=== PATIENT | female | born 1955 | race Two or more races ===

== ENCOUNTER → 2017-05-05 | Outpatient (CLI) | payer BC ==
--- NOTE | 2017-05-06 09:49 | RADRPT ---
PROCEDURE: Left hip series CLINICAL INDICATION: Pain TECHNIQUE: AP and frog lateral views of the left hip were performed. COMPARISON: None. FINDINGS: There is a left hip prosthesis in place without evidence of dislocation or loosening. There are no acute fractures. The bony mineralization is normal without focal bony blastic or lytic lesions. So ft tissues are unremarkable. IMPRESSION: 1. Left hip prosthesis in place without evidence of acute fracture dislocation or loosening. RPTAT:AAJJ Physician Philly Date Time Electronically viewed and signed by Physician Philly on 05/05/2017 16:07 /
--- NOTE | 2017-05-06 10:21 | HKNOTE ---
DATE OF SERVICE: 05/05/2017 Dr. Bipin Izquierdo [address] [facility], [address] [place] [address] Dear Bipin: Thank you for referring Camilla Merritt. It is my understanding from her that you referred to me to say if physical therapy might harm her hip. I understand she is possibly going to require spine surgery but you want her to have physical therapy first and is concerned about the impact of the physical therapy on her left total hip replacement. The hip replacement was performed in 1994. She is very pleased with the results of the surgery. She is currently experiencing no symptoms relevant to the left hip replacement. Patient took a fall in December 2016. She currently has no symptoms that one might connect with a fractured socket. The left hip is with full range of motion without pain. Straight leg raising is negative bilaterally at 80 degrees. The x-rays of her left hip show that the acetabular liner has almost worn through completely. Otherwise the components appear to be well attached to the bone. She will need to have a revision of the socket liner at some time in the very near future. I have advised her that it is not an emergency and that it certainly could wait another 6 months, although it would be preferable to exchange of the liner sooner. I have given her a note for the physical therapist with instructions that they may proceed with therapy but no passive exercises should be applied to her left leg. Thank you for your confidence and referring her to my care. With warmest regards, Dictated By: Luis Lance MD /weston/beatrice /Document#: [id number]
--- NOTE | 2017-05-06 10:21 | HKNOTE ---
DATE OF SERVICE: 05/05/2017 REFERRING PHYSICIAN: Dr. Bipin Izquierdo [address] [facility] [place] [address] MAIN COMPLAINT: Pain in the left hip. HISTORY OF MAIN COMPLAINT: The patient is a 61-year-old female, who complains of pain in her left hip. The patient is under the care of Dr. Izquierdo. She has had jykqk-qb-xsocisy low back pain with radiation down her left leg. Dr. Izquierdo obtained an MRI scan and said she need surgery to her back, but he first wants to try physical therapy. However, he is concerned that the physical therapist may do her more harm than good by having physical therapy in relation to her left hip replacement. He wants to know if physical therapy is "okay." PRESENT COMPLAINTS: Patient's symptoms all appear to be related to her lower back. She does not have any groin pain on either side. She uses a cane much of the time. The patient did not provide us with very much more of a history than that. PHYSICAL EXAMINATION: GENERAL: Patient is a fragile-looking 61-year-old female. VITAL SIGNS: Height 5 foot 3 inches. Weight 143 pounds. Blood pressure 150/75, temperature 98.5. The patient walks with a cane. HIPS: Examination of the left hip, a full range of motion without pain. IMAGING: Plain x-rays of the pelvis and left hip obtained today show that she has a ogxcv-gt-vktkxey hip implant. The plastic is worn superiorly and is almost worn through. Plain x-rays of the pelvis and left hip obtained today show that she has had a total hip replacement. The femoral component has been cemented. The acetabular component is cement free. The plastic liner superiorly inside the socket appears to have fractured. Difficult to determine the exact pattern of the fracture. The femoral head sits way near the superior aspect of the acetabulum. It is also completely eccentric. MANAGEMENT: The patient is advised that she will need to have the socket liner replaced fairly soon. The procedure was discussed with her in a fair amount of detail including such aspects as hospital stay and the length of the operation, etc. The patient is advised that it certainly would not be a problem for her to have physical therapy as long as they do not have her left leg and socket aggressively. The patient was given a prescription for the physical therapy unit to explain the limitations. The report indicates "okay to give physical therapy" as ordered by Dr. Izquierdo with no passive work on the left leg. She will be seen again as necessary. Dictated By: Luis Lance MD /weston/beatrice /Document#: [id number]
== END | disposition home or self-care (01) ==
LOC: HKI 15:40
DX: M25.552 Pain in left hip (principal); M54.5 Low back pain; Z96.642 Presence of left artificial hip joint
CPT/HCPCS: 73502; G0463

== ENCOUNTER → 2018-10-07 | Outpatient (CLI) | payer BC ==
--- NOTE | 2018-10-07 16:54 | CONS ---
Date/Time of Note Date/Time of Note DATE: 10/07/18 TIME: 16:46 Assessment/Plan Assessment/Plan Hospital Course This is a 8-year-old female who is qtckw-nuse-xrlwlzds 1 week status post right shoulder dislocation and greater tuberosity fracture. Today x-rays demonstrate that her shoulder is reduced and there is a minimally displaced greater tuberosity fracture. This is amenable to nonoperative treatment. She is to continue the sling and swath. She is to perform no range of motion of the shoulder. She is to perform daily range of motion of the elbow, wrist, forearm, and hand. She is to follow-up in 2 weeks with 3 views of the right shoulder. X-rays look good she will begin pendulums. In addition she is in physical therapy for her degenerative disc disease. At this time I recommend that She hold his physical therapy. Consultation Date/Type/Reason Admit Date/Time Date of Consultation: Oct 07, 2018 Reason for Consultation Right shoulder dislocation and fracture Hx of Present Illness This is a 62-year-old ljepg-ybze-ggazczwr female who presents to clinic for the first time 7 days status post right shoulder injury. She tripped and stopped her fall by planting her right hand firmly against a wall. She sustained a right shoulder fracture dislocation. She was seen in the [place] emergency department. At that time the shoulder was reduced. She was put in a sling and swath and told to follow-up. Patient denies any numbness or tingling in the arm. She does have pain in the right shoulder although it is improved. Pain is 4/10 and is described as sharp and stabbing. She has no prior injury to the shoulder. Lying down makes his symptoms worse. Ice and immobilization make the symptoms better. Patient denies fever, chills, shortness of breath, chest pain, nausea/vomiting, constipation, diarrhea, numbness, and tingling. Past Medical History Current bladder infections Past Surgical History Left total hip arthroplasty Family History Significant Family History: no pertinent family hx Social History Alcohol Use: none Smoking Status: Never smoker Drug Use: none Exam/Review of Systems Vital Signs Vitals Weight: 140 pounds Height: 5 foot 3 inches Temperature: 90.4 Heart Rate: 65 Blood Pressure: 123/60 Respiratory Rate: 12 Exam General: Awake, alert, in no acute distress, pleasant and cooperative Heart: regular rhythm Lungs: breathing comfortably, no tachypnea or dyspnea MUSCULOSKELETAL: Right upper extremity Large ecchymosis over the anterior shoulder and anterior humerus. Tenderness to palpation over the proximal humerus. Skin is intact. Sensation intact to light touch in a median, ulnar, radial, and axillary distribution. Motor is intact in a median, ulnar, radial, anterior interosseous, and posterior interosseous nerve distribution. Radial and ulnar artery are +2. Wrist extension and flexion are intact. Compartments are soft. Imaging Imaging The patient received a standard set of films of the affected shoulder including an AP, Grashey, Scapular Y and velpeau views. Films personally reviewed by myself: The glenohumeral joint is reduced. There is a minimally displaced greater tuberosity fracture. No osteoarthritis of the GHJ. Mild osteoarthritis of the AC joint. The humeral head is not high riding. There is no acetabularization of the acromion or femoralization of the humerus. LATIA SHARPE MD Oct 07, 2018 16:54
--- NOTE | 2018-10-10 08:25 | RADRPT ---
PROCEDURE: XR right shoulder CLINICAL INDICATION: shoulder pain. TECHNIQUE: 4 views of the right shoulder were obtained. COMPARISON: None. FINDINGS: There is a mildly displaced fracture of the right humerus involving the greater tuberosity. The remai darlene osseous structures are intact and well aligned. The alignment of the glenohumeral and right acro mioclavicular joints are maintained. The bone mineralization is normal. There are mild degenerative c hanges of the right acromioclavicular joint. IMPRESSION: 1. Mildly displaced fracture of the right humerus involving the greater tuberosity. The findings were discussed with Dr. Singh at 08:20 a.m. on 10/10/[address] Erickson. RPTAT: AAEE Physician Tra Date Time Electronically viewed and signed by Estephania Erickson Physician on 10/10/2018 08:24 RF/
== END | disposition home or self-care (01) ==
LOC: HKI 14:01
PROVIDERS: ATTEND Orthopaedic Surgery Adult Reconstructive Orthopaedic Surgery
DX: S43.004D Unspecified dislocation of right shoulder joint, subsequent encounter (principal); X58.XXXD Exposure to other specified factors, subsequent encounter; M19.011 Primary osteoarthritis, right shoulder
CPT/HCPCS: 73030; G0463

== ENCOUNTER → 2018-11-18 | Outpatient (CLI) | payer BC ==
--- NOTE | 2018-11-18 14:19 | CONS ---
Consult Date/Type/Reason Admit Date/Time Initial Consult Date Date/Time of Note DATE: 11/18/18 TIME: 14:14 Subjective This is a 8-year-old female following up 7 weeks status post right shoulder fracture dislocation. She sustained a greater tuberosity fracture which reduced in near anatomic position once her shoulder was reduced. She was last seen 1 month ago. She was supposed to start physical therapy for up pendulums and gentle passive range of motion. However she is only been to therapy 3 times. She complains of moderate pain along the lateral aspect of her shoulder down her lateral aspect of her arm. She feels very stiff. Denies numbness and tingling. She has remained nonweightbearing as instructed. Objective Exam General: Awake, alert, in no acute distress, pleasant and cooperative Heart: regular rhythm Lungs: breathing comfortably, no tachypnea or dyspnea MUSCULOSKELETAL: Right upper extremity Tenderness to palpation over the lateral proximal humerus. Range of motion of the glenohumeral joint is limited secondary to stiffness. Forward elevation and abduction to about 45 degrees. Sensation intact to light touch in a median, ulnar, radial, and axillary distribution. Motor is intact in a median, ulnar, radial, anterior interosseous, and posterior interosseous nerve distribution. Radial and ulnar artery are +2. Wrist extension and flexion are intact. Compartments are soft. Results/Medications Imaging 3 views of the right shoulder were obtained in clinic today and personally reviewed. Previously noted greater tuberosity fracture is appreciated. There has been interval healing. No displacement. Greater tuberosity in near anatomic position. No other abnormality. Assessment/Plan Hospital Course (Demo Recall) 8-year-old female 7 weeks status post right shoulder fracture dislocation with fracture of the greater tuberosity. She is being treated nonoperatively as the fracture is near anatomically reduced. She is doing well except that she is very stiff. She had unfortunately late start to physical therapy. This time want her to continue with physical therapy for full passive range of motion as tolerated and active assisted range of motion. Otherwise she is to remain nonweightbearing. I do not want her to try to perform active range of motion overhead. Follow-up 3 weeks with 3 views of the right shoulder. LATIA SHARPE MD Nov 18, 2018 14:19
--- NOTE | 2018-11-19 09:12 | RADRPT ---
PROCEDURE: XR right shoulder. CLINICAL INDICATION: Pain TECHNIQUE: AP external rotation, internal rotation and transscapular views of the right shoulder w ere performed. COMPARISON: SHOULDER 10/28/2018; SHOULDER 10/07/2018 FINDINGS: There is normal osseous mineralization and alignment. There is interval healing of the greater tuberosity fracture. There are normal joints without evidence of arthritis or dislocation. The soft tissues are unremarkable. IMPRESSION: Healing greater tuberosity fracture. [facility] Physician Ryan Date Time Electronically viewed and signed by Physician Ryan on 11/19/2018 09:11 /
== END | disposition home or self-care (01) ==
LOC: HKI 13:21
PROVIDERS: ATTEND Orthopaedic Surgery Adult Reconstructive Orthopaedic Surgery
DX: Z09 Encounter for follow-up examination after completed treatment for conditions other than malignant neoplasm (principal); S42.251D Displaced fracture of greater tuberosity of right humerus, subsequent encounter for fracture with routine healing; X58.XXXD Exposure to other specified factors, subsequent encounter
CPT/HCPCS: 73030; G0463

== ENCOUNTER → 2018-12-09 | Outpatient (CLI) | payer BC ==
--- NOTE | 2018-12-09 14:45 | CONS ---
Consult Date/Type/Reason Admit Date/Time Initial Consult Date Date/Time of Note DATE: 12/09/18 TIME: 14:36 Subjective 63-year-old female follows up 10 weeks status post right shoulder dislocation with fracture of the greater tuberosity. She has been treated nonoperatively as the greater tuberosity was minimally displaced. Unfortunately she had a late start physical therapy and she only started several weeks ago. Her main complaint is stiffness and inability to fully use her arm. She does not have any pain at rest. Denies any numbness and tingling. She has felt she has had some progress with range of motion since starting physical therapy. Objective Vitals Weight: 140 pounds Height: 5 feet 3 inches Temperature: 98.2 Heart Rate: 55 Blood Pressure: 154/72 Respiratory Rate: 12 Exam General: Awake, alert, in no acute distress, pleasant and cooperative Heart: regular rhythm Lungs: breathing comfortably, no tachypnea or dyspnea MUSCULOSKELETAL: Right upper extremity: Nontender to palpation. Passive equals active range of motion: Forward elevation: 60 degrees Abduction: 60 degrees External rotation: 0 degrees Internal rotation: Buttock Sensation intact to light touch in a median, ulnar, radial, and axillary distribution. Motor is intact in a median, ulnar, radial, anterior interosseous, and posterior interosseous nerve distribution. Radial and ulnar artery are +2. Wrist extension and flexion are intact. Compartments are soft. Results/Medications Imaging 3 views of the right shoulder were obtained in clinic today and personally reviewed. Previously noted greater tuberosity fracture is appreciated. There has been interval healing. No displacement. Greater tuberosity in near anatomic position. No other abnormality. Assessment/Plan Hospital Course (Demo Recall) 63-year-old female status post right shoulder dislocation and greater tuberosity fracture. The greater tuberosity is healing well. She continues to have significant stiffness although she has had some improvement since last visit. At this time she can proceed to progress with physical therapy as the fracture is essentially healed radiographically. She should be working on passive and active range of motion. Follow-up 6 weeks with x-rays. LATIA SHARPE MD Dec 09, 2018 14:45
--- NOTE | 2018-12-14 10:55 | RADRPT ---
PROCEDURE: XR Right Shoulder CLINICAL INDICATION: Pain TECHNIQUE: An AP view, and a tangential view, and a Y-view were submitted. COMPARISON: 11/18/2018 FINDINGS: Osseous structures: The osseous elements again appear osteopenic. There is a stable appearance to the nondisplaced fracture involving the greater tuberosity of the right humeral head. The osseous elemen ts otherwise appear intact. Joint spaces: The glenohumeral joint appears unremarkable. The AC joint appears normal. Soft tissues: appear unremarkable. IMPRESSION: 1. Stable appearance to the healing nondisplaced fracture involving the greater tuberosity of the ri ght humeral head. 2. Osteopenia. Physician Odette Date Time Electronically viewed and signed by Physician Odette on 12/14/2018 10:55 /
== END | disposition home or self-care (01) ==
LOC: HKI 13:03
PROVIDERS: ATTEND Orthopaedic Surgery Adult Reconstructive Orthopaedic Surgery
DX: M25.611 Stiffness of right shoulder, not elsewhere classified (principal); Z96.611 Presence of right artificial shoulder joint
CPT/HCPCS: 73030; G0463